=== PATIENT | male | born 1990 | race Caucasian/White ===

== ENCOUNTER 2019-12-04 19:38 | Inpatient (IN) | payer SELFPAY ==
--- NOTE | 2019-12-04 19:49 | ED_ITS ---
HPI - Psych General: Chief Complaint: Psychiatric Symptoms Stated Complaint: mhe Time Seen by Provider: 12/04/19 19:47 History of Present Illness: HPI Narrative: Pt states he has been using meth iv for a long time and he has a , he has had suicidal thoughts in the past and he is afraid to be around his while he is high, he states he needs help to get off meth and he is severely depressed. He has sores that are healing on his forearms. complaint: suicidal ideation (not at this moment but in recent past) Onset (ago): day(s) Duration: constant History of same: Yes Relieving factors: none Exacerbating factors: drug use (ivda- meth) Context: recent drug abuse and significant life stressor (has a ) Associated psychiatric symptoms: depression and suicidal ideation Associated symptoms: Reports depression, suicidal ideation and other (doesnt want to hurt ) Treatments prior to arrival: none If self harm: admits thoughts of self harm Review of Systems General: Reports: 10 or more systems reviewed and unremarkable except in HPI and below Const: Denies: fever, chills or fatigue ENMT: Denies: throat pain Card: Denies: chest pain or swelling of feet/ankles Resp: Denies: shortness of breath or productive cough GI: Denies: abdominal pain, nausea, vomiting, diarrhea, constipation or blood in stool Musc: Denies: back pain or extremity swelling Skin/Breast: Reports: new lesion (bilat forearms at sites of ivda, healing) Neuro: Denies: headache, numbness in extremities or weakness in extremities Psych: Reports: depression and suicidal ideation PFS ED PFSH: Social History Smoking and tobacco status: current every day smoker Physical Exam Const: COMMON NORMALS: no apparent distress and oriented x3 GENERAL APPEARANCE: cooperative; not in distress HENMT: COMMON NORMALS: normocephalic HEAD & SCALP: normal to inspection and normocephalic MOUTH: oral and palatal mucosa normal and lip normal THROAT: posterior oropharynx normal and tonsils normal Neck/C-Spine: COMMON NORMALS: full ROM, no lymphadenopathy, supple and no meningeal signs GENERAL: Yes normal visual inspection and Yes trachea midline Chest: COMMONS NORMALS: inspection of chest normal Resp: COMMON NORMALS: normal respiratory effort and clear to auscultation bilaterally EFFORT & INSPECTION: Yes able to speak in complete sentences and No respiratory distress AUSCULTATION: clear to auscultation bilaterally, no rales, no rhonchi and no wheezes Cardio: COMMON NORMALS: regular rate, regular rhythm, S1 normal heart sound, S2 normal heart sound and no murmurs RATE: regular rate RHYTHM: regular rhythm HEART SOUNDS: S1 normal and S2 normal PERIPHERAL PULSES: radial pulses present and dorsalis pedis pulses present GI: COMMON NORMALS: normal to inspection, nondistended, normoactive bowel sounds, soft to palpation and non-tender INSPECTION: Yes normal to inspection AUSCULTATION: Yes normoactive bowel sounds PALPATION: Yes soft, No tender, No guarding and No rigid RECTAL EXAM: Yes deferred : COMMON NORMALS: Yes no CVA tenderness BLADDER/KIDNEY EXAM: Yes no CVA tenderness Back/Pelvis: COMMON NORMALS: no CVA tenderness Extremity: RIGHT UPPER EXTREMITY: Yes lower arm (2 healing lesions at site of ivda) LEFT UPPER EXTREMITY: Yes lower arm (1 healing lesion at site of ivda) Neuro: COMMON NORMALS: oriented x3, CN's II-XII intact bilaterally, moves all extremities and no focal motor deficits MENINGEAL SIGNS: Yes no meningeal signs MDM - Psych MDM Narrative: Medical decision making narrative: Pt admits to ivda and states he has been very depressed and has had recent suicidal thoughts, he has a and doesnt want to harm her, he wants to stay in npu, Dr Sharma agrees, pt is positive formeth and marijuana. Has healing lesions on forearms, no cellulitis or abscess. . Lab Data: Labs: Lab Results 12/04/19 12/04/19 12/04/19 Range/Units 20:13 20:25 20:25 WBC 11.1 H (4.0-10.0) 10^3/ uL RBC 5.08 (4.1-5.3) 10^6/u L Hgb 14.3 (11.7-16.6) g/dL Hct 44.5 (42.0-52.0) % MCV 87.6 (80-94) fL MCH 28.1 (28.0-34.0) pg MCHC 32.1 (30.0-36.0) g/dL RDW 15.5 H (12.1-15.1) % Plt Count 381 (130-400) 10^3/c mm MPV 9.6 (7.4-10.4) fL Neut % (Auto) 59.5 % Lymph % (Auto) 28.0 % [place] % (Auto) 9.8 % Eos % (Auto) 1.6 % Baso % (Auto) 0.7 % Neut # (Auto) 6.6 (1.8-7.7) 10^3/u L Lymph # (Auto) 3.1 (0.8-4.8) 10^3/u L [place] # (Auto) 1.1 H (0.2-0.9) 10^3/u L Eos # (Auto) 0.2 (0.0-0.8) 10^3/u L Baso # (Auto) 0.1 (0.0-0.1) 10^3/u L Nucleated RBC % (a uto) 0 % Nucleated RBCs # 0.0 /100WBC Sodium 141 (136-145) mmol/L Potassium 4.6 (3.5-5.1) mmol/L Chloride 103 (98-107) mmol/L Carbon Dioxide 29 (22-29) mmol/L Anion Gap 13.6 (5-19) BUN 14 (6-20) mg/dL Creatinine 1.0 (0.7-1.2) mg/dL GFR Calculation 89.6 L (90-130) mL/min Glucose 98 (65-115) mg/dL Calculated Osmolal ity 288 (285-295) mOsm/k g Calcium 9.5 (8.5-10.5) mg/dL Total Bilirubin 0.3 (0.15-1.2) mg/dL AST 17 (0-40) U/L ALT 19 (0-41) U/L Alkaline Phosphata se 96 (40-130) IU/L Total Protein 6.8 (6.6-8.7) g/dL Albumin 4.0 (3.5-5.2) g/dL Globulin 2.8 (1.3-4.6) g/dL Salicylates < 0.3 L (3-10) mg/dL Urine Opiates Scre en Negative (Negative) ng/mL Acetaminophen < 5.0 L (10-30) ug/mL Ur Barbiturates Sc reen Negative (Negative) ng/mL Ur Phencyclidine S crn Negative (Negative) ng/mL Ur Amphetamines Sc reen Positive H (Negative) ng/mL U Benzodiazepines Scrn Negative (Negative) ng/mL Urine Cocaine Scre en Negative (Negative) ng/mL U Marijuana (THC) Screen Positive H (Negative) ng/mL Ethyl Alcohol < 10 (0-10) mg/dL Discharge Plan Discharge Prescriptions: No Action No Known Home Medications RF: 0 Coding Level of Care Code 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
[2019-12-04 19:58] VITALS: BP 134/86; PULSE 98; RESP 18; TEMP 37; O2SAT 96; BMI 24.4
[2019-12-04 20:32] LABS: Amphetamines Screen Urine Positive (Negative); Barbiturates Screen Urine Negative (Negative); Benzodiazepines Screen Urine Negative (Negative); Cocaine Screen Urine Negative (Negative); Opiate Screen Urine Negative (Negative); PCP Screen Urine Negative (Negative); THC Screen Urine Positive (Negative)
[2019-12-04 20:32] LABS: Basophils # 0.1 10^3/uL (0.0-0.1); Basophils % 0.7 %; Eosinophils # 0.2 10^3/uL (0.0-0.8); Eosinophils % 1.6 %; Hematocrit 44.5 % (42.0-52.0); Hemoglobin 14.3 g/dL (11.7-16.6); Lymphocytes # 3.1 10^3/uL (0.8-4.8); Mean Corpuscular HGB Conc 32.1 g/dL (30.0-36.0); Mean Corpuscular Hemoglobin 28.1 pg (28.0-34.0); Mean Corpuscular Volume 87.6 fL (80-94); Mean Platelet Volume 9.6 fL (7.4-10.4); Monocytes # 1.1 10^3/uL (0.2-0.9); Monocytes % 9.8 %; Neutrophils # 6.6 10^3/uL (1.8-7.7); Neutrophils % 59.5 %; Nucleated Red Blood Cells % 0 %; Platelet Count 381 10^3/cmm (130-400); Red Blood Count 5.08 10^6/uL (4.1-5.3); Red Cell Distribution Width 15.5 % (12.1-15.1); White Blood Count 11.1 10^3/uL (4.0-10.0)
[2019-12-04 20:50] LABS: Acetaminophen < 5.0 ug/mL (10-30); Alanine Aminotransferase 19 U/L (0-41); Alcohol Level < 10 mg/dL (0-10); Alkaline Phosphatase 96 IU/L (40-130); Anion Gap 13.6 (5-19); Aspartate Amino Transferase 17 U/L (0-40); Blood Urea Nitrogen 14 mg/dL (6-20); Calcium 9.5 mg/dL (8.5-10.5); Carbon Dioxide 29 mmol/L (22-29); Chloride 103 mmol/L (98-107); Globulin 2.8 g/dL (1.3-4.6); Glomerular Filtration Rate 89.6 mL/min (90-130); Glucose 98 mg/dL (65-115); Osmolality Calculated 288 mOsm/kg (285-295); Potassium 4.6 mmol/L (3.5-5.1); Salicylate < 0.3 mg/dL (3-10); Sodium 141 mmol/L (136-145); Total Bilirubin 0.3 mg/dL (0.15-1.2); Total Protein 6.8 g/dL (6.6-8.7)
[2019-12-04 21:35] VITALS: BP 148/98; PULSE 96; RESP 16; O2SAT 100
[2019-12-04 22:15] VITALS: BP 131/80; PULSE 87; RESP 21; TEMP 36.6; O2SAT 100
[2019-12-04 22:36] VITALS: BP 131/80; PULSE 87; RESP 21; TEMP 36.6; O2SAT 100
[2019-12-05 06:00] VITALS: BP 121/71; PULSE 87; RESP 18; TEMP 36.8; O2SAT 99
--- NOTE | 2019-12-05 09:45 | PM.NHP ---
Providers/Chief Complaint Admitting Physician: Barrett Sharma MD Chief Complaint: mhe HPI NPU History of Present Illness Maco Crenshaw is a 29 year old male who presents today reporting that he came to the emergency room secondary to having thoughts to kill himself. He reports that he has a that is a few months old and that for some reason he cannot stop using methamphetamines, and he is fearful that he is going to hurt himself or do something harmful to the baby why he is in some altered state. He denies the desire to do anything to the baby and really does not want to harm himself, but he reports that he feels horrible and distraught about his behavior, he feels guilty, his mood is low and he has lost interest in other things. He reports that it is not that he gets high and then feels horrible, it is that when he is thinking clearly and has withdrawn from the drugs that he is feeling significant depression and anxiety, and not knowing what to do and not feeling like he has any chance of maintaining his sobriety which makes him feel even more depressed. He reports he has never been in psychiatric care, that he has never had any psychiatric medications, he has never been hospitalized, this is all new to him. PSYCHIATRIC HISTORY: As above with no previous history. SUBSTANCE ABUSE HISTORY: He endorsed smoking cigarettes. He reports he does not drink alcohol often. He has marijuana frequently but not daily. He denies cocaine use but does endorse methamphetamine use daily at times. He denies opiate use or benzodiazepine use. He has never been to rehab, never had a DUI. FAMILY HISTORY: He endorses a family history of mental health and especially addiction issues. Unclear about any suicide attempts or completions in the family. DEVELOPMENTAL HISTORY: He denies any problems with his or delivery. He reports that he learned to walk and talk and met his developmental milestones on time. He denies any issues of speech therapy, but then said that his siblings had speech therapy and they realized that he just had a lisp or something they identified, but it made it so that they really did not do the speech therapy with him. He denies having learning support, emotional support or special education classes. He reports that his parents were together when he was born, but later . He does have a sibling through his parents. He reports that his childhood was fairly normal. He endorses graduating from high school. He reports that he is heterosexual, his longest relationship has been about six years. He has never officially been . He has one child, he thought he had two, but he just recently found out that the one that had been identified as his, was actually not his. He has never been in the . He endorses being Nondenominational. He reports that he has always worked for the most part and been a ?functional addict? but reports that he has really struggled recently with maintaining that. He endorses that he currently has been living with his ex and her man which has been really difficult. PSYCHOSOCIAL HISTORY: LEGAL HISTORY: He has been in senior living a few times, but never more than like 72-hour holds. MEDICAL HISTORY: He denies any significant issues. Meds NPU Home Medications Medication Instructions Recorded Confirmed Last Taken Type No Known Home Medications 12/04/19 12/04/19 Unknown History Allergies Allergy/AdvReac Type Severity Reaction Status Date / Time No Known Allergies Allergy Verified 12/04/19 20:05 PFS NPU PFSH: Social History Smoking and tobacco status: current every day smoker Mental Status Exam MSE Comments: This is a well-nourished, well-developed, white male, with adequate dress, grooming, and eye contact. He has significant sores that are healing on his arms and forearms. No abnormal movements except for psychomotor retardation. Cooperative with exam in mild distress. Speech was decreased rate and volume. Mood described as depressed; affect congruent, tearful or near tearful for most of the interview. Thought process, organized. Thought content: patient having some suicidal ideation but no homicidal ideation. There were no delusions reported or noted, patient denied any auditory or visual hallucinations. Attention and concentration were intact, and memory appeared reliable, but none were formally tested. He is alert and oriented times three. Insight and judgment are fair. Vitals/I&O/Wt Last Vital Signs Temp 97.9 F 12/05/19 12:49 Pulse 84 12/05/19 12:49 Resp 18 12/05/19 12:49 BP 151/84 12/05/19 12:49 Pulse Ox 100 12/05/19 12:49 Weight last 48 hrs Weight 76.294 kg Weight 79.379 kg Data NPU : 12/04/19 20:12/04/19 20:25 A&P Assessment and plan (1) Suicidal ideation: This is a 29 year old, white male, with depressive disorder, unspecified, and methamphetamine use disorder, severe, who presents with suicidal thoughts and desiring treatment for his depression and hopefully being pointed in the direction of inpatient addiction treatment. Continue current medications, except: Start Prozac 20 mg po qam. Can give 10 mg today now, and then will start 20 mg every morning. Continue individual and milieu therapy. Continue q 15-minute checks for safety. Tomorrow will work with social work team to see what sober living options are available given the COVID crisis. Status: Acute (2) Depression: Status: Acute Qualifiers: Active/Remission status: currently active Depression Type: major depressive disorder Major depression episode severity: severe Major depression recurrence: recurrent Psychotic features: without psychotic features Qualified Code(s): F33.2 - Major depressive disorder, recurrent severe without psychotic features (3) Drug abuse, IV: Status: Acute Involuntary Hold Information 96 Hour Hold: 96 Hour Involuntary Admission: No Attestations NPU Medical Necessity Statement*: Inpatient hospitalization is medically necessary and the clinically appropriate intervention at this time. He will be in the hospital for over two midnights. We will monitor medications and adjust as indicated. Likely length of stay three to five days. 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
[2019-12-05 12:49] VITALS: BP 151/84; PULSE 84; RESP 18; TEMP 36.6; O2SAT 100
[2019-12-05] MEDS: trazodone 50 mg Tablet PO (21:06)
[2019-12-05] MEDS: fluoxetine 10 mg Capsule PO (21:24)
[2019-12-05 21:27] VITALS: BP 132/74; PULSE 85; RESP 18; TEMP 36.7; O2SAT 98
--- NOTE | 2019-12-05 23:08 | PC.NURSE ---
Pt given scheduled prozac and PRN trazodone at 2123.
[2019-12-06 06:00] VITALS: BP 142/90; PULSE 67; RESP 17; TEMP 36.5; O2SAT 96
[2019-12-06] MEDS: fluoxetine 20 mg Capsule PO (08:53)
--- NOTE | 2019-12-06 13:56 | P.PN_ITS ---
Subjective NPU Subjective: Interval history: Maco presents today reporting that he is doing okay. He was fairly lethargic and hard to arouse and clearly going through the natural crash after a significant methamphetamine binge. He continues to endorse that the medication is helping, and we began to discuss other options. We are supposed to be meeting with social workers and therapists sometime later today about definitive addiction treatment as we focus on his depression. We discussed the possibility of introducing some Naltrexone, which has had some anecdotal evidence in helping people with cravings against methamphetamine, and he understood and agreed to consider making that change. Mental Status Exam MSE Comments: This is a well-nourished, well-developed, white male, with adequate dress, and limited grooming and eye contact, with some sores of differing ages, healing on his body. No abnormal movements. Cooperative with exam in no acute distress. Speech was decreased rate and volume. Mood described as depressed; affect congruent. Thought process, organized. Thought content: michelle redman denied any suicidal or homicidal ideation, there were no delusions reported or noted, he denied any auditory or visual hallucinations. Attention, concentration, and memory appeared intact but were not formally tested. He is alert and oriented times three. Insight and judgment are fair. Vitals/I&O/Wt Last Vital Signs Temp 97.7 F 12/06/19 06:00 Pulse 67 12/06/19 06:00 Resp 17 12/06/19 06:00 BP 142/90 12/06/19 06:00 Pulse Ox 96 12/06/19 06:00 Data NPU : 12/04/19 20:25 12/04/19 20:25 A&P Additional A&P Information (1) Suicidal ideation: This is a 29 year old, white male, with depressive disorder, unspecified, and methamphetamine use disorder, severe, who presents with suicidal thoughts and desiring treatment for his depression and hopefully being pointed in the direction of inpatient addiction treatment. Continue current medications, except: Consider Naltrexone 50 mg po qam Continue individual and milieu therapy. Continue q 15-minute checks for safety. Tomorrow will work with social work team to see what sober living options are available given the COVID crisis. (2) Depression: (3) Drug abuse, IV: Involuntary Hold Information 96 Hour Hold: 96 Hour Involuntary Admission: No Attestations NPU Medical Necessity Statement*: Inpatient hospitalization is medically necessary and the clinically appropriate intervention at this time. We will monitor medications and adjust as indicated. Likely length of stay 2-4 days. Coding Level of Care Code Acute [employer] for Estela [employer]
[2019-12-06 14:00] VITALS: BP 128/75; PULSE 71; RESP 18; TEMP 36.7; O2SAT 96
[2019-12-06] MEDS: trazodone 50 mg Tablet PO (20:45)
--- NOTE | 2019-12-06 21:25 | PC.NURSE ---
Pt given PRN Trazodone per request for sleep.
[2019-12-06 21:38] VITALS: BP 122/86; PULSE 112; RESP 20; TEMP 36.9; O2SAT 96
[2019-12-07 06:00] VITALS: BP 122/72; PULSE 71; RESP 20; TEMP 36.7; O2SAT 96
[2019-12-07] MEDS: fluoxetine 20 mg Capsule PO (09:31)
[2019-12-07 13:28] VITALS: BP 124/77; PULSE 84; RESP 18; TEMP 36.6; O2SAT 98
--- NOTE | 2019-12-07 15:52 | PM.NPN ---
Subjective NPU Subjective: Interval history: Maco presents today reporting that he is feeling okay. We discussed the fact that with the COVID there are not a lot of options for inpatient services immediately, but he filled out paperwork and we made recommendations so that he can do outpatient services and possibly move in to inpatient services as they become available as things reopen. We are working towards him having a place to stay while this occurs. He endorses the medications have been fine and effective, and we discussed the possibility of discharge within the next 48 hours. Mental Status Exam MSE Comments: This is a well-nourished, well-developed, white male, with adequate dress, grooming, and eye contact with sores of different ages healing on his body. No abnormal movements except for psychomotor retardation. Cooperative with exam in no acute distress. Speech was decreased rate and volume. Mood described as a little better; affect congruent. Thought process, organized. Thought content: patient denied any suicidal or homicidal ideation, there were no delusions reported or noted, patient denied any auditory or visual hallucinations. Attention, concentration, and memory appeared intact but were not formally tested. Alert and oriented times three. Insight and judgment are limited but improving. Vitals/I&O/Wt Last Vital Signs Temp 98.0 F 12/07/19 21:29 Pulse 112 H 12/07/19 21:29 Resp 20 H 12/07/19 21:29 BP 109/70 12/07/19 21:29 Pulse Ox 97 12/07/19 21:29 Data NPU : 12/04/19 20:25 12/04/19 20:25 A&P Additional A&P Information (1) Suicidal ideation: This is a 29 year old, white male, with depressive disorder, unspecified, and methamphetamine use disorder, severe, who presents with suicidal thoughts and desiring treatment for his depression and hopefully being pointed in the direction of inpatient addiction treatment. Continue current medications, except: Consider Naltrexone 50 mg po qam Continue individual and milieu therapy. Continue q 15-minute checks for safety. Tomorrow will work with social work team to see what sober living options are available given the COVID crisis. (2) Depression: (3) Drug abuse, IV: Involuntary Hold Information 96 Hour Hold: 96 Hour Involuntary Admission: No Attestations NPU Medical Necessity Statement*: Inpatient hospitalization is medically necessary and the clinically appropriate intervention at this time. We will monitor medications and adjust as indicated. Likely length of stay 1-3 days. 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
[2019-12-07] MEDS: hyDROXYzine 25 mg Capsule 50 MG PO (20:34)
[2019-12-07] MEDS: OLANZapine ODT 5 MG TABLET PO (20:34)
[2019-12-07 21:29] VITALS: BP 109/70; PULSE 112; RESP 20; TEMP 36.7; O2SAT 97
--- NOTE | 2019-12-07 21:40 | PC.NURSE ---
Pt given Prn visteril per pt request.
[2019-12-08 05:54] VITALS: BP 124/78; PULSE 79; RESP 17; TEMP 36.7; O2SAT 98
[2019-12-08] MEDS: fluoxetine 20 mg Capsule PO (09:03)
--- NOTE | 2019-12-08 11:42 | P.PN_ITS ---
Subjective NPU Subjective: Interval history: Maco presents today reporting that as much as there are challenges out there, he is feeling optimistic that he is going to be able to manage this situation. He filled out the papers for outpatient rehabilitation with the hopes of getting an inpatient rehabilitation, but he is prepared to do whatever is available, for now, to try to maintain his sobriety and to avoid getting himself in the hole that he found himself in. The social work team is working with him to identify where he is going to stay; it is a toss-up between the old place that he was staying, which he would not prefer, and seeing if his sister would give him a chance to demonstrate that he is really ready to change; he would prefer to stay with her while he is doing this and making improvements. Otherwise, he reports that he is not having any problems with the medication and that he is eating and sleeping well. Mental Status Exam MSE Comments: This is an overweight, well-developed, white male, with adequate dress, grooming, and eye contact, with still notable healing sores of differing ages. No abnormal movements, except for improving psychomotor retardation. Cooperative with exam in no acute distress. Speech was decreased rate and volume, but improving. Mood described as a little better; affect still subdued. Thought process, organized. Thought content: patient denied any suicidal or homicidal ideation, there were no delusions reported or noted, patient denied an y auditory or visual hallucinations. Attention, concentration, and memory appeared intact but none were formally tested. Alert and oriented times three. Insight and judgment are limited but improving. Vitals/I&O/Wt Last Vital Signs Temp 97.8 F 12/08/19 21:44 Pulse 94 12/08/19 21:44 Resp 17 12/08/19 21:44 BP 121/74 12/08/19 21:44 Pulse Ox 97 12/08/19 21:44 Data NPU : 12/04/19 20:25 12/04/19 20:25 A&P Additional A&P Information (1) Suicidal ideation: This is a 29 year old, white male, with depressive disorder, unspecified, and methamphetamine use disorder, severe, who presents with suicidal thoughts and desiring treatment for his depression and hopefully being pointed in the direction of inpatient addiction treatment. Continue current medications, except:He will get a script of Revia for when his insurance kicks in Continue individual and milieu therapy. Continue q 15-minute checks for safety. Tomorrow will work with social work team to see what sober living options are available given the COVID crisis. (2) Depression: (3) Drug abuse, IV: Involuntary Hold Information 96 Hour Hold: 96 Hour Involuntary Admission: No Attestations NPU Medical Necessity Statement*: Inpatient hospitalization is medically necessary and the clinically appropriate intervention at this time. We will monitor medications and adjust as indicated. Likely length of stay 1-2 days. 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
[2019-12-08 14:00] VITALS: BP 123/72; PULSE 85; RESP 20; TEMP 36.9; O2SAT 97
[2019-12-08 21:44] VITALS: BP 121/74; PULSE 94; RESP 17; TEMP 36.6; O2SAT 97
[2019-12-09 06:00] VITALS: BP 120/70; PULSE 89; RESP 17; TEMP 36.7; O2SAT 95
[2019-12-09] MEDS: fluoxetine 20 mg Capsule PO (08:38)
--- NOTE | 2019-12-09 13:01 | PM.NDC ---
Diagnoses at Discharge Discharge Diagnosis (1) Suicidal ideation: Status: Acute (2) Depression: Status: Acute Qualifiers: Active/Remission status: currently active Depression Type: major depressive disorder Major depression episode severity: severe Major depression recurrence: recurrent Psychotic features: without psychotic features Qualified Code(s): F33.2 - Major depressive disorder, recurrent severe without psychotic features (3) Drug abuse, IV: Status: Acute Reason for Visit Reason for Visit: Reason For Visit: mhe Brief History: History of Present Illness Mcao Crenshaw is a 29 year old male who presents today reporting that he came to the emergency room secondary to having thoughts to kill himself. He reports that he has a that is a few months old and that for some reason he cannot stop using methamphetamines, and he is fearful that he is going to hurt himself or do something harmful to the baby why he is in some altered state. He denies the desire to do anything to the baby and really does not want to harm himself, but he reports that he feels horrible and distraught about his behavior, he feels guilty, his mood is low and he has lost interest in other things. He reports that it is not that he gets high and then feels horrible, it is that when he is thinking clearly and has withdrawn from the drugs that he is feeling significant depression and anxiety, and not knowing what to do and not feeling like he has any chance of maintaining his sobriety which makes him feel even more depressed. He reports he has never been in psychiatric care, that he has never had any psychiatric medications, he has never been hospitalized, this is all new to him. PSYCHIATRIC HISTORY: As above with no previous history. SUBSTANCE ABUSE HISTORY: He endorsed smoking cigarettes. He reports he does not drink alcohol often. He has marijuana frequently but not daily. He denies cocaine use but does endorse methamphetamine use daily at times. He denies opiate use or benzodiazepine use. He has never been to rehab, never had a DUI. FAMILY HISTORY: He endorses a family history of mental health and especially addiction issues. Unclear about any suicide attempts or completions in the family. DEVELOPMENTAL HISTORY: He denies any problems with his or delivery. He reports that he learned to walk and talk and met his developmental milestones on time. He denies any issues of speech therapy, but then said that his siblings had speech therapy and they realized that he just had a lisp or something they identified, but it made it so that they really did not do the speech therapy with him. He denies having learning support, emotional support or special education classes. He reports that his parents were together when he was born, but later . He does have a sibling through his parents. He reports that his childhood was fairly normal. He endorses graduating from high school. He reports that he is heterosexual, his longest relationship has been about six years. He has never officially been . He has one child, he thought he had two, but he just recently found out that the one that had been identified as his, was actually not his. He has never been in the . He endorses being Shinto. He reports that he has always worked for the most part and been a ?functional addict? but reports that he has really struggled recently with maintaining that. He endorses that he currently has been living with his ex and her man which has been really difficult. PSYCHOSOCIAL HISTORY: LEGAL HISTORY: He has been in intermediate a few times, but never more than like 72-hour holds. MEDICAL HISTORY: He denies any significant issues. Hospital Course Hospital Course Maco presented to the emergency room reporting that he was having suicidal thoughts and had been out of control with his methamphetamine addiction, so he was admitted to the neuropsychiatric unit for definitive care. He slowly acclimated to the resources provided. He was started on Prozac and tolerated that medication fine. He also went through the withdrawal from the methamphetamine slowly but effectively. He was connected with services and showed marked improvement. During the hospitalization, he had routine laboratory studies which were within normal limits, except for a few outliers. Additionally, he had a general medical evaluation which was within normal limits, in general, and had no new acute processes except for notable healing sores from his injection sites. Discharge Summary At the time of discharge he denied all lethality, he was absent psychosis, his mood and anxiety were well managed, and he endorsed a plan to follow-up with the treatment recommendations that were provided, which included access to both outpatient and inpatient sober living services. He was evaluated and deemed to be absent credible lethality, and had reached the maximum benefit from inpatient hospitalization, and so he was discharged. Involuntary Hold Information 96 Hour Hold: 96 Hour Involuntary Admission: No Mental Status Exam MSE Comments: This is a well-nourished, well-developed, white male, with adequate dress, grooming, and eye contact. With notable healing sores and scars of differing ages. No abnormal movements, except for resolving psychomotor retardation. Cooperative with exam in no acute distress. Speech was slightly decreased rate and volume but improving. Mood described as much better; affect congruent. Thought process, organized. Thought content: patient denied any suicidal or homicidal ideation, there were no delusions reported or noted, he denied any auditory or visual hallucinations. Attention, concentration, and memory appeared intact but none were formally tested. He is alert and oriented times three. Insight and judgment are improving. Discharge Data Vitals: Last Vital Signs Temp 98.1 F 12/09/19 06:00 Pulse 89 12/09/19 06:00 Resp 17 12/09/19 06:00 BP 120/70 12/09/19 06:00 Pulse Ox 95 12/09/19 06:00 Discharge Plan Discharge Patient Disposition: Home, Self-Care Condition: Stable Prescriptions: New fluoxetine 20 mg Capsule 20 mg PO DAILY 30 Days Qty: 30 RF: 1 naltrexone 50 mg tablet 50 mg PO DAILY Qty: 30 RF: 1 Discharge Orders: Discharge Order (Routine); Ordered 12/09/19 Ordered By: Barrett Sharma Referrals: [facility] [place] [facility] [Outside] (most likely [facility] is opening up next week of December 12 for face to face interviews. do call and confirm before going to [facility]. Typically, when you start outpatient mental health services at [facility] you go during the walk-in hours of 7:30a.m. -2:30 on any day Friday through Friday. You need to get initial intake done and then from there you will be able to get an appointment. ) [facility] [Outside] (you will need to call daily about updates on starting your treatment at [facility] for substance abuse treatment. Right now COVID 19 is affecting them from meeting. ) Discharge Diet: Regular Discharge Activity: Resume usual activity Patient Instructions: Fluoxetine (By mouth), Depression (DC), Methamphetamine Abuse (DC) Discharge Date/Time: 12/09/19 13:32 Discharge Attestations NPU Time Spent in Discharge Care*: less than 30 min Specific Discharge Activities: Specific discharge activities: educating patient, discussing with welfare case worker/social workers/dc planners, documenting/other paperwork and evaluating patient/reviewing data Coding Level of Care Code Acute Surgical Attendant for g Fwd Diagnoses Suicidal ideation R45.851 Depression F33.2 Active/Remission status: currently active Depression Type: major depressive disorder Major depression episode severity: severe Major depression recurrence: recurrent Psychotic features: without psychotic features Drug abuse, IV F19.10
[2019-12-09 13:02] VITALS: BP 120/70; PULSE 89; RESP 17; TEMP 36.7; O2SAT 95
== END 2019-12-09 13:32 | disposition home or self-care (01) | DRG 885 ==
LOC: ER 21:03 → NP 21:22
PROVIDERS: Admitting Provider Psychiatry & Neurology Psychiatry; Emergency Provider Emergency Medicine; Visit Provider Psychiatry & Neurology Psychiatry
DX: F33.2 Major depressive disorder, recurrent severe without psychotic features (principal); R45.851 Suicidal ideations; F15.20 Other stimulant dependence, uncomplicated
CPT/HCPCS: 12345; 80053; 80306; 80307; 85025; 99284

== ENCOUNTER → 2019-12-28 08:01 | Outpatient (BNVA) | payer SELFPAY | PROVIDERS: Visit Provider Counselor Mental Health | DX: F33.2 Major depressive disorder, recurrent severe without psychotic features (principal); F15.10 Other stimulant abuse, uncomplicated | CPT/HCPCS: 90834; 90839 ==

== ENCOUNTER 2020-04-12 09:53 | Emergency (ER) | payer SELFPAY ==
[2020-04-12 10:19] VITALS: BP 130/86; PULSE 84; RESP 16; TEMP 36.4; O2SAT 65; BMI 25.7
--- NOTE | 2020-04-12 10:37 | W.ED.DENTAL ---
HPI - Dental/Oral General: Chief complaint: Dental/Oral Stated complaint: SWOLLEN FACE Time Seen by Provider: 04/12/20 10:33 History of Present Illness: HPI Narrative: Patient woke up with swelling left side of jaw. Does have history of dental caries. Onset (ago): hour(s) Severity: mild Associated symptoms: Denies fever(s) Review of Systems Const: Denies: fever(s), chills or body aches Eyes: Denies: change in vision or blurry vision ENMT: Reports: other (Swelling left side of jaw has a history of dental caries); Denies: throat pain or nasal congestion Card: Denies: chest pain or dyspnea on exertion Resp: Denies: dyspnea, productive cough or non-productive cough GI: Denies: abdominal pain, nausea or vomiting : Denies: difficulty urinating Musc: Denies: extremity pain Skin/Breast: Denies: rash Neuro: Denies: headache(s) Psych: Denies: anxiety or depression Saul/Lymph: Denies: easy bruising PFSH ED PFSH: Social History Smoking and tobacco status: current every day smoker Current gender identity: Male Physical Exam Const: COMMON NORMALS: no acute distress, average body habitus and patient oriented x3 HENMT: COMMON NORMALS: normocephalic HEAD & SCALP: normal to inspection and normocephalic FACE & SINUS: normal facial exam TEETH & GINGIVA IMAGES: 1. Teeth are down to the gumline they are black and he has swelling on this side no abscess formation felt Eye: COMMON NORMALS: conjunctivae normal GENERAL EYE: appearance normal, both eyes and all related structures CONJUNCTIVA: Yes conjunctivae normal Neck/C-Spine: COMMON NORMALS: no JVD Chest: COMMONS NORMALS: normal inspection of the chest Resp: COMMON NORMALS: normal respiratory effort Cardio: COMMON NORMALS: no JVD Extremity: COMMON NORMALS: normal to inspection and full ROM Neuro: COMMON NORMALS: patient oriented x3 Course Vital Signs: Vital signs: Vital Signs Temperature 97.5 F L 04/12/20 10:19 Pulse Rate 84 04/12/20 10:19 Respiratory Rate 16 04/12/20 10:19 Blood Pressure 130/86 04/12/20 10:19 Pulse Oximetry 65 L 04/12/20 10:19 Discharge Plan Discharge Patient Disposition: Home Clinical Impression: Abscess, dental Condition: Stable Prescriptions: New clindamycin HCl 300 mg capsule 300 mg PO TID 7 Days Qty: 21 RF: 0 No Action fluoxetine 20 mg Capsule 20 mg PO DAILY 30 Days Qty: 30 RF: 1 naltrexone 50 mg tablet 50 mg PO DAILY Qty: 30 RF: 1 Discharge Orders: Discharge Order (Routine); Ordered 04/12/20 Ordered By: Isaac Wesley Discharge Diet: Usual diet Discharge Activity: Increase activity as tolerated Patient Instructions: Dental Abscess (ED) Activity Restrictions/Additional Instructions: Follow-up with medical provider as directed. Take medications as prescribed. Return to the ER or your medical provider if condition worsens. Please read and understand discharge instructions. If any questions ask please. Follow-up dentist soon as possible Coding Level of Care Code ED Mold Design Engineer for Estela Blood
[2020-04-12 10:41] VITALS: BP 125/88; PULSE 87; RESP 16; O2SAT 98
== END 2020-04-12 10:44 | disposition home or self-care (01) ==
PROVIDERS: Emergency Provider Nurse Practitioner Family
DX: K04.7 Periapical abscess without sinus (principal); F17.210 Nicotine dependence, cigarettes, uncomplicated
CPT/HCPCS: 12345; 99281

== ENCOUNTER 2020-06-26 08:07 | Emergency (ER) | payer OTHER, SELFPAY ==
[2020-06-26 08:19] VITALS: BP 122/79; PULSE 109; RESP 16; TEMP 37.1; O2SAT 95; BMI 23.7
--- NOTE | 2020-06-26 09:00 | XR_ITS ---
WS: [id number] Exam: XR chest 1V portable [id number] Date/Time of Exam: 06/26/2020 9:00 AM Reason For Exam: dyspnea/cough Findings: The lungs are clear and fully expanded. Costophrenic angles are sharp. No infiltrates. Bronchovascula r relief appears normal. Cardiac silhouette is unremarkable. Bony elements are intact. XR/XR chest 1V portable [id number] IMPRESSION: Unremarkable chest radiograph.
--- NOTE | 2020-06-26 09:02 | ED_ITS ---
HPI - Fever General: Chief Complaint: Fever Stated Complaint: Fever/Coughing/Weakness Time Seen by Provider: 06/26/20 08:09 History of Present Illness: HPI Narrative: 29-year-old male comes in complaining of cough fever weakness myalgias he has had a cough for the last couple weeks but the myalgias no other symptoms as well as a cough of all accelerated significantly over the last approximately week. He is a smoker he states he has had moderate production of sputum he is not been particularly short of breath he is not had any diarrhea. MD elicited complaint: fever Onset (ago): day(s) Exacerbating factors: exertion Relieving factors: rest Associated symptoms: Reports chills, cough, myalgias, nasal congestion, nausea and rhinorrhea; Deny abdominal pain, flank pain, chest pain, confusion, diarrhea, dysuria, extremity pain, headache(s), night sweats, rash, short of breath, sinus pain, stiffness, sore throat, vomiting or weight loss Treatments prior to arrival fever: none Review of Systems Const: Reports: chills; Denies: night sweats Eyes: Denies: change in vision or blurry vision ENMT: Reports: nasal congestion; Denies: sinus pain Card: Denies: chest pain Resp: Reports: productive cough; Denies: dyspnea, non-productive cough or wheezing GI: Reports: nausea; Denies: abdominal pain, vomiting or diarrhea : Denies: flank pain or dysuria Musc: Denies: extremity pain Skin/Breast: Denies: rash, pruritus or erythema Neuro: Denies: headache(s) or confusion Psych: Denies: anxiety, depression, loss of interest, visual hallucinations, auditory hallucinations, suicidal ideation or homicidal ideation Endo: Denies: polyuria, polydipsia, tired all the time or cold intolerance Saul/Lymph: Denies: easy bruising, easy bleeding, petechiae, enlarged lymph nodes or tender lymph nodes PFS ED PFSH: Social History Smoking and tobacco status: current every day smoker Current gender identity: Male Physical Exam Const: COMMON NORMALS: no acute distress GENERAL APPEARANCE: cooperative and comfortable ORIENTATION/CONSCIOUSNESS: Yes awake, Yes oriented to person, Yes oriented to place and Yes oriented to time HENMT: COMMON NORMALS: normocephalic, atraumatic and hearing grossly normal bilaterally HEAD & SCALP: normocephalic and atraumatic Neck/C-Spine: COMMON NORMALS: no JVD Resp: COMMON NORMALS: normal respiratory effort, No retractions, No use of accessory muscles and clear to auscultation bilaterally AUSCULTATION: clear to auscultation bilaterally Cardio: COMMON NORMALS: no JVD, regular rate, regular rhythm and No murmurs present (Cardio) RATE: regular rate RHYTHM: regular rhythm GI: COMMON NORMALS: Soft to palpation and No hepatosplenomegaly present AUSCULTATION: Yes normoactive bowel sounds PALPATION: Yes Soft to palpation, No Tenderness to palpation present (GI), No Guarding due to palpation present (GI) and Yes No hepatosplenomegaly present Extremity: COMMON NORMALS: normal to inspection, capillary refill normal, no clubbing, cyanosis or edema, no calf tenderness and no pedal edema Neuro: SENSORIUM/ORIENTATION: Yes oriented to person, Yes oriented to place and Yes oriented to time Skin: COMMON NORMALS: no rashes or lesions noted GENERAL SKIN EXAM: no rashes or lesions noted Course Vital Signs: Vital signs: Vital Signs Temperature 98.7 F 06/26/20 08:19 Pulse Rate 93 06/26/20 09:45 Respiratory Rate 18 06/26/20 09:45 Blood Pressure 118/74 06/26/20 09:45 Pulse Oximetry 98 06/26/20 09:45 MDM - Fever MDM Narrative: Medical decision making narrative: Reviewed findings with the patient. Suspect he may have COVID-19 however he is very stable his chest x-ray is normal will discharge home with albuterol to use as needed return if has further problems recommend self quarantine until test results are available. Discharge Plan Discharge Patient Disposition: Home Clinical Impression: Viral URI with cough, Suspected 2019-nCoV infection Condition: Stable Prescriptions: New albuterol sulfate 90 mcg/actuation HFA aerosol inhaler 2 inh INHALATION Q4H PRN (Reason: shortness of breath or wheezing) Qty: 18 RF: 0 No Action fluoxetine 20 mg Capsule 20 mg PO DAILY 30 Days Qty: 30 RF: 1 naltrexone 50 mg tablet 50 mg PO DAILY Qty: 30 RF: 1 Discharge Orders: Discharge Order (Routine); Ordered 06/26/20 Ordered By: Sarkis Oden Activity Restrictions/Additional Instructions: You were tested for COVID-19 today. Recommend that you remain self quarantined until the results are back if you have worsening problems with breathing return. Coding Level of Care Code ED Commutator Assembler for Estela Fwd Exam Comprehensive
[2020-06-26 09:45] VITALS: BP 118/74; PULSE 93; RESP 18; O2SAT 98
[2020-06-27 17:18] LABS: Coronavirus Lab Test PTC Negative
--- NOTE | 2020-06-28 08:37 | PC.NURSE ---
notified pt of COVID results
== END 2020-06-26 09:47 | disposition home or self-care (01) ==
PROVIDERS: Emergency Provider Family Medicine
DX: J06.9 Acute upper respiratory infection, unspecified (principal); Z20.828 Contact with and (suspected) exposure to other viral communicable diseases; F17.210 Nicotine dependence, cigarettes, uncomplicated
CPT/HCPCS: 12345; 71045; 87635; 99281; 99283

== ENCOUNTER 2021-09-17 16:39 | Emergency (ER) | payer SELFPAY ==
[2021-09-17 17:00] VITALS: BP 128/78; PULSE 95; RESP 18; TEMP 36.8; O2SAT 99; BMI 23.4
--- NOTE | 2021-09-17 18:30 | ED_ITS ---
HPI - Male Genitourinary General: Chief complaint: Urogenital-Male Stated complaint: penile discharge Time Seen by Provider: 09/17/21 17:34 Source: patient Mode of arrival: ambulatory Limitations: no limitations History of Present Illness: Patient is a 30-year-old male who presents to ED today with a complaint of penile discharge over the past few days. He is also having some burning with urination. He has not noticed any rashes or lesions to his genitalia. Patient states he arrived to the ED with a female individual who is also being seen with complaints of vaginal discharge but states she LWBS. Patient is concerned for STDs and wants treatment. MD Complaint: penile discharge Onset (ago): day(s) Duration: constant Location: penis Severity: moderate Exacerbating factors: urination Associated symptoms: Reports discharge and dysuria; Deny nausea or vomiting Related Data: Sexually active: Yes Review of Systems Const: Denies: fever(s), chills, body aches, fatigue or malaise GI: Denies: abdominal pain, nausea, vomiting or diarrhea : Reports: dysuria and penile discharge; Denies: flank pain, difficulty urinating, genital pain, genital lesions, testicular pain, testicular mass or scrotal swelling Musc: Denies: back pain Skin/Breast: Denies: rash PFSH ED PFSH: Social History Smoking and tobacco status: current every day smoker Current gender identity: Male Physical Exam Const: COMMON NORMALS: no acute distress, patient oriented x3, no limitations and alert GENERAL APPEARANCE: cooperative Resp: COMMON NORMALS: normal respiratory effort Cardio: COMMON NORMALS: regular rate and regular rhythm RATE: regular rate RHYTHM: regular rhythm GI: COMMON NORMALS: Normal to inspection, nondistended, normoactive bowel sounds present, Soft to palpation, non-tender, No hepatosplenomegaly present and no masses PALPATION: Yes Soft to palpation and Yes No hepatosplenomegaly present : COMMON NORMALS: Yes no CVA tenderness, Yes scrotum normal and Yes no scrotal swelling BLADDER/KIDNEY EXAM: Yes no CVA tenderness PENIS: normal penis and circumcised MEATUS: meatal discharge (diffuse white/yellow discharge present) SCROTUM: Yes testes descended bilaterally TESTES: Yes testicular lie normal Back/Pelvis: COMMON NORMALS: no CVA tenderness Neuro: COMMON NORMALS: patient oriented x3 SENSORIUM/ORIENTATION: Yes alert Skin: COMMON NORMALS: no rashes or lesions noted GENERAL SKIN EXAM: no rashes or lesions noted Course Vital Signs: Vital signs: Vital Signs Temperature 98.2 F 09/17/21 17:00 Pulse Rate 95 09/17/21 17:00 Respiratory Rate 18 09/17/21 17:00 Blood Pressure 128/78 09/17/21 17:00 Pulse Oximetry 99 09/17/21 17:00 MDM - Male Medical Decision Making Will obtain gonorrhea/chlamydia swabs. Patient was given PO azithromycin (I worried about adherence/being able to fill RX doxycycline) and IM rocephin. Encouraged all sexual partners get tested/treated. Discussed cleaning any sexual toys. Needs to have test of cure performed before engaging in sexual activity. Patient verbalized understanding. Discharge Plan Discharge Patient Disposition: Home Clinical Impression: Penile discharge Condition: Stable Prescriptions: No Action fluoxetine 20 mg Capsule 20 mg PO DAILY 30 Days Qty: 30 1RF naltrexone 50 mg tablet 50 mg PO DAILY Qty: 30 1RF albuterol sulfate 90 mcg/actuation HFA aerosol inhaler 2 inh INHALATION Q4H PRN (Reason: shortness of breath or wheezing) Qty: 18 0RF Discharge Orders: Discharge ED (Routine); Ordered 09/17/21 Ordered By: Cate Jiang Patient Instructions: Safe Sex Practices (ED), Sexually Transmitted Diseases in Adolescents (ED) Activity Restrictions/Additional Instructions: As we discussed all sexual partners need to get tested and treated as well. You need to wash and disinfect all sexual toys. You should be contacted in a few days if your gonorrhea/chlamydia test come back positive. You will need to have a test of cure performed by the health department or primary care prior to resuming sexual activity. Coding Level of Care Code ED Network And Threat Support Specialist for Estela Fwd Exam Detailed
[2021-09-17] MEDS: azithromycin 250 mg Tablet 1000 MG PO (18:52)
[2021-09-17 19:21] VITALS: BP 123/81; PULSE 95; RESP 20; O2SAT 99
== END 2021-09-17 19:22 | disposition home or self-care (01) ==
PROVIDERS: Emergency Provider Physician Assistant
DX: R36.9 Urethral discharge, unspecified (principal); F17.210 Nicotine dependence, cigarettes, uncomplicated
CPT/HCPCS: 87491; 87591; 96372; 99283; J0696; Q0144

== ENCOUNTER 2022-08-16 21:41 | Emergency (ER) | payer BC, SELFPAY ==
[2022-08-16 21:59] VITALS: BP 161/99; PULSE 93; RESP 18; TEMP 36.4; O2SAT 99; BMI 24.4
[2022-08-16] MEDS: ketorolac 60 mg/2 mL INJ IM (23:30)
--- NOTE | 2022-08-17 00:06 | ED_ITS ---
Documented by User: CASIE Perez 08/17/22 00:18 HPI - Extremity Problem General: Chief complaint: Extremity Injury, Upper Stated complaint: wrist pain Time Seen by Provider: 08/16/22 22:55 History of Present Illness: Patient is a 31-year-old male that presents to the emergency department with complaints of bilateral hand pain numbness. Onset of symptoms unknown. 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 Patient denies any known injury or trauma to the extremities Patient has wounds in multiple stages of healing to hands, upper extremities, face. Patient has a history of methamphetamine and IV drug abuse but denies that currently Associated symptoms: Deny chest pain, fever(s) or rash Review of Systems General: Reports: 10 or more systems reviewed and unremarkable except in HPI and below Const: Denies: fever(s), chills, change in appetite, change in weight, fatigue or malaise Eyes: Denies: change in vision, eye discomfort, eye discharge or eye redness ENMT: Denies: throat pain, enlarged tonsils, odynophagia, hoarseness, ear or mastoid pain, ear discharge, change in hearing, tinnitus, nasal discharge, nasal congestion, post nasal drip or sinus pain Card: Denies: chest pain, palpitations, irregular heart rhythm, edema, dyspnea on exertion, orthopnea or leg pain with exertion Resp: Denies: dyspnea, productive cough, non-productive cough, wheezing, stridor or chest congestion GI: Denies: abdominal pain, nausea, vomiting, dysphagia, diarrhea, constipation, bloating, GI cramping or hematochezia : Denies: flank pain, dysuria, urinary frequency, urinary urgency, urinary hesitancy, oliguria or hematuria Musc: Denies: neck pain, back pain, extremity pain, joint pain, joint swelling, joint redness, joint warmth or muscle weakness Skin/Breast: Denies: rash, pruritus, erythema, photosensitivity or new lesions Neuro: Denies: headache(s), numbness in extremities, weakness in extremities, sensory changes, lack of coordination, difficulty walking, frequent falls, dizziness, confusion, Slurred speech present, difficulty communicating thoughts, seizure-like activity or involuntary movements Endo: Denies: polyuria, polydipsia or tired all the time Saul/Lymph: Denies: easy bruising or easy bleeding PFSH ED PFSH: Social History Smoking and tobacco status: current every day smoker Current gender identity: Male Physical Exam Const: COMMON NORMALS: no acute distress, average body habitus, patient oriented x3, no limitations, healthy appearing, alert and well nourished GENERAL APPEARANCE: cooperative, comfortable and well developed; not in distress and not anxious ORIENTATION/CONSCIOUSNESS: Yes awake, Yes oriented to person, Yes oriented to place and Yes oriented to time HENMT: COMMON NORMALS: normocephalic, atraumatic and hearing grossly normal bilaterally HEAD & SCALP: normal to inspection, normocephalic and atraumatic FACE & SINUS: face symmetric MOUTH: Normal oral and palatal mucosa present, lip normal and tongue normal Eye: COMMON NORMALS: Equal, round and reactive pupils present and EOMs intact bilaterally PUPIL: Yes Equal, round and reactive pupils present Neck/C-Spine: COMMON NORMALS: full ROM and supple GENERAL: Yes normal visual inspection CERVICAL SPINE: Yes cervical ROM normal Lymph: LYMPHATIC: no lymphadenopathy noted Chest: COMMONS NORMALS: normal inspection of the chest Breast/axilla inspection: Yes no chest deformity, asymmetry, normal contours, no nodules, masses, tenderness Resp: COMMON NORMALS: normal respiratory effort, No retractions and No use of accessory muscles EFFORT & INSPECTION: Yes able to speak in complete sentences, Yes symmetric chest movement and No abnormal respiratory pattern Cardio: COMMON NORMALS: regular rate, regular rhythm and Peripheral pulses 2+ throughout RATE: regular rate RHYTHM: regular rhythm PERIPHERAL PULSES: Peripheral pulses 2+ throughout GI: COMMON NORMALS: Normal to inspection, nondistended, normoactive bowel sounds present, Soft to palpation and non-tender INSPECTION: Yes normal to inspection PALPATION: Yes Soft to palpation Extremity: COMMON NORMALS: normal to inspection, full ROM and capillary refill normal GENERAL: Yes normal exam except as noted Neuro: COMMON NORMALS: patient oriented x3 SENSORIUM/ORIENTATION: Yes alert, Yes oriented to person, Yes oriented to place and Yes oriented to time Psych: COMMON NORMALS: mental status grossly normal, Normal thought process present, cooperative, normal affect, speech normal and activity/motor behavior normal SPEECH: Yes normal speech THOUGHT PROCESS: Normal thought process present Skin: COMMON NORMALS: no rashes or lesions noted, no wounds, turgor normal, no jaundice, no petechiae and no mottling GENERAL SKIN EXAM: no rashes or lesions noted and turgor normal Course Vital Signs: Vital signs: Vital Signs Temperature 97.6 F 08/16/22 21:59 Pulse Rate 93 08/16/22 21:59 Respiratory Rate 18 08/16/22 21:59 Blood Pressure 161/99 08/16/22 21:59 Pulse Oximetry 99 08/16/22 21:59 MDM - Extremity (Nontraumatic) Medical Decision Making Patient is a 31-year-old man that presents to the emergency department with complaints of bilateral hand pain or numbness. Patient reports numbness and tingling along the median nerve distribution of the left upper extremity. Patient reports pain in right hand Differential diagnosis includes traumatic injury to include fracture, fracture dislocation, soft tissue injury including cellulitis, carpal tunnel, Here in the emergency department patient had a positive Tinel's and Phalen with the left upper extremity. I have ordered him a cock up wrist splint Patient does not have any evidence of nerve dysfunction. He is able to give a thumbs up make an okay sign, cross fingers, abduct fingers and make a fist Sensations grossly intact throughout upper extremities I treated his pain with Toradol. Patient will discharge home with follow-up with PCP. All questions answered in detail Discharge Plan Discharge Patient Disposition: Home Clinical Impression: Sprain and strain of wrist, Acute carpal tunnel syndrome Condition: Stable Prescriptions: New ketorolac 10 mg tablet 10 mg PO TID 5 Days Qty: 15 0RF No Action fluoxetine 20 mg Capsule 20 mg PO DAILY 30 Days Qty: 30 1RF naltrexone 50 mg tablet 50 mg PO DAILY Qty: 30 1RF albuterol sulfate 90 mcg/actuation HFA aerosol inhaler 2 inh INHALATION Q4H PRN (Reason: shortness of breath or wheezing) Qty: 18 0RF Discharge Orders: Discharge ED (Routine); Ordered 08/17/22 Ordered By: Zoey Ladd Discharge Diet: Advance as tolerated Discharge Activity: Resume usual activity Patient Instructions: Carpal Tunnel Syndrome, Wrist Injury (ED), Opioid Safety, Pain Management Activity Restrictions/Additional Instructions: Please follow-up with your primary care provider for further evaluation of todays complaints. Return to the emergency department for new concerning or worsening symptom Coding Level of Care Code ED Rotary Bar Operator for Chg Fwd Exam Comprehensive Documented by User: Sarkis Oden DO 08/17/22 08:27 HPI - Extremity Problem General: Chief complaint: Extremity Injury, Upper Stated complaint: wrist pain Time Seen by Provider: 08/16/22 22:55 PFSH ED PFSH: Social History Smoking and tobacco status: current every day smoker Current gender identity: Male Course Vital Signs: Vital signs: Vital Signs Temperature 97.6 F 08/16/22 21:59 Pulse Rate 93 08/16/22 21:59 Respiratory Rate 18 08/16/22 21:59 Blood Pressure 161/99 08/16/22 21:59 Pulse Oximetry 99 08/16/22 21:59 MDM - Extremity (Nontraumatic) Medical Decision Making Patient is a 31-year-old man that presents to the emergency department with complaints of bilateral hand pain or numbness. Patient reports numbness and tingling along the median nerve distribution of the left upper extremity. Patient reports pain in right hand Differential diagnosis includes traumatic injury to include fracture, fracture dislocation, soft tissue injury including cellulitis, carpal tunnel, Here in the emergency department patient had a positive Tinel's and Phalen with the left upper extremity. I have ordered him a cock up wrist splint Patient does not have any evidence of nerve dysfunction. He is able to give a thumbs up make an okay sign, cross fingers, abduct fingers and make a fist Sensations grossly intact throughout upper extremities I treated his pain with Toradol. Patient will discharge home with follow-up with PCP. All questions answered in detail Chart reviewed and patient discussed with midlevel. Agree with assessment and plan. Discharge Plan Discharge Patient Disposition: Home Clinical Impression: Sprain and strain of wrist, Acute carpal tunnel syndrome Condition: Stable Prescriptions: New ketorolac 10 mg tablet 10 mg PO TID 5 Days Qty: 15 0RF No Action fluoxetine 20 mg Capsule 20 mg PO DAILY 30 Days Qty: 30 1RF naltrexone 50 mg tablet 50 mg PO DAILY Qty: 30 1RF albuterol sulfate 90 mcg/actuation HFA aerosol inhaler 2 inh INHALATION Q4H PRN (Reason: shortness of breath or wheezing) Qty: 18 0RF Discharge Orders: Discharge ED (Routine); Ordered 08/17/22 Ordered By: Zoey Ladd Discharge Diet: Advance as tolerated Discharge Activity: Resume usual activity Patient Instructions: Carpal Tunnel Syndrome, Wrist Injury (ED), Opioid Safety, Pain Management Activity Restrictions/Additional Instructions: Please follow-up with your primary care provider for further evaluation of todays complaints. Return to the emergency department for new concerning or worsening symptom Coding Level of Care Code ED Rotary Bar Operator for Estela Blood Exam Comprehensive
== END 2022-08-17 00:57 | disposition home or self-care (01) ==
PROVIDERS: Emergency Provider Nurse Practitioner
DX: S63.509A Unspecified sprain of unspecified wrist, initial encounter (principal); S66.919A Strain of unspecified muscle, fascia and tendon at wrist and hand level, unspecified hand, initial encounter; G56.00 Carpal tunnel syndrome, unspecified upper limb; F17.210 Nicotine dependence, cigarettes, uncomplicated; X58.XXXA Exposure to other specified factors, initial encounter
CPT/HCPCS: 96372; 99284; J1885

== ENCOUNTER 2023-06-04 19:17 | Emergency (ER) | payer SELFPAY ==
[2023-06-04 19:20] VITALS: BP 156/95; PULSE 68; RESP 16; TEMP 36.6; O2SAT 99; BMI 24.4
[2023-06-04 19:51] VITALS: BP 140/82; PULSE 67; RESP 18; O2SAT 97
[2023-06-04] MEDS: naproxen 500 mg Tablet PO (20:41)
[2023-06-04] MEDS: dexamethasone 10 mg/mL INJ IM (20:42)
--- NOTE | 2023-06-04 22:01 | W.ED.EXTPRO ---
HPI - Extremity Problem General: Chief complaint: Extremity Injury, Upper Stated complaint: bilateral hand pain Time Seen by Provider: 06/04/23 19:40 History of Present Illness: 32-year-old male complains of bilateral wrist and hand pain for a few months. 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 He did repetitive movements and strained his hands and wrist frequently. He started getting pain shooting from the wrist down into his fingers. He got fired from that job and states that his wrists and hands got better. 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 He does this recurrently. This has flared up his pain again. He says the pain is even worse if he sleeps wrong on his wrist. He has tried using splints but his wrist seems swollen and the splints make it hurt even worse. He says when he sleeps at night he puts his hands together and puts them up in an area where he will not flex or extend them. Denies redness, excessive warmth, fever, chills, wounds. Associated symptoms: Deny fever(s) Review of Systems General: Reports: 10 or more systems reviewed and unremarkable except in HPI and below Const: Denies: fever(s), chills or body aches Musc: Reports: extremity pain, extremity swelling, joint stiffness and limited range of motion; Denies: joint swelling, joint redness, joint warmth, muscle weakness or deformity PFSH ED PFSH: Social History Smoking and tobacco/nicotine status: current every day tobacco/nicotine user Current gender identity: Male Physical Exam Const: COMMON NORMALS: no limitations, alert and well nourished EXAM LIMITATIONS: no altered mental status Neck/C-Spine: GENERAL: Yes normal visual inspection and Yes trachea midline Extremity: NARRATIVE EXTREMITY EXAM: Bilateral upper extremities examined. The shoulders upper arms and elbows are all unremarkable. The forearms are unremarkable. The patient has tenderness to squeezing over the carpal tunnel bilaterally. Tinel's sign is positive. Phalen's flap is positive. Patient has the ability to abduct and abduct his fingers. He can flex and extend his wrist but it causes him pretty significant pain. The carpal passage seems edematous bilaterally but right greater than left. Cap refill in the fingers is normal. Neuro: COMMON NORMALS: moves all extremities, no focal motor deficits and no sensory deficits noted SENSORIUM/ORIENTATION: Yes alert SPEECH: speech normal Skin: COMMON NORMALS: no rashes or lesions noted, turgor normal and no jaundice GENERAL SKIN EXAM: no rashes or lesions noted and turgor normal Course Vital Signs: Vital signs: Vital Signs Temperature 97.9 F 06/04/23 19:20 Pulse Rate 67 06/04/23 19:51 Respiratory Rate 18 06/04/23 19:51 Blood Pressure 140/82 06/04/23 19:51 Pulse Oximetry 97 06/04/23 19:51 Oxygen Delivery Me thod Room Air 06/04/23 19:51 MDM - Extremity (Nontraumatic) Medical Decision Making I suspect that the patient does have carpal tunnel syndrome bilaterally, right greater than left. He does repetitive movements and the more he does the worse it gets. I have advised trial of NSAIDs, rest, scheduled icing, using Tao wraps (as he says the splints are too tight), and follow-up to orthopedic surgery. Unfortunately, his entire role at his job revolves around moving the slabs of wood. He may ultimately have to find a new job since there is no way for him to do light duty . Decadron shot given in the ED to help with inflammation and pain. No signs of septic joint or other emergent etiology. No radiology studies performed this visit Discharge Plan Discharge Patient Disposition: Home Clinical Impression: Carpal tunnel syndrome on both sides Condition: Stable Prescriptions: New naproxen 250 mg tablet 250 mg PO BID 10 Days Qty: 20 0RF No Action fluoxetine 20 mg Capsule 20 mg PO DAILY 30 Days Qty: 30 1RF naltrexone 50 mg tablet 50 mg PO DAILY Qty: 30 1RF albuterol sulfate 90 mcg/actuation HFA aerosol inhaler 2 inh INHALATION Q4H PRN (Reason: shortness of breath or wheezing) Qty: 18 0RF Discharge Orders: Discharge ED (Routine); Ordered 06/04/23 Ordered By: Leo Willson Referrals: Nuzhat Mejia MD [Physician] - 7-10 days (Suspected carpal tunnel) Discharge Activity: Limit activity as instructed Patient Instructions: Carpal Tunnel Syndrome, Opioid Safety, Pain Management Activity Restrictions/Additional Instructions: 1. Avoid repetitive movements and lifting with the hands/wrists. 2. Ice the wrists for 20 minutes 3x per day; elevate. 3. Wear wrist splints or TAO wraps at night and as much as possible during the day as well. 4. Make a follow-up with Dr Nuzhat Mejia for further evaluation and treatment. 5. Take medication as prescribed for 10 days. Coding Level of Care Code ED Fisher Purse Seine for Etsela Blood
--- NOTE | 2023-06-05 07:46 | DCPLANNER ---
Referral was sent to ortho clinic on 06/05 at 07:46 am. Clinic to contact patient.
== END 2023-06-04 20:40 | disposition home or self-care (01) ==
PROVIDERS: Emergency Provider Emergency Medicine
DX: G56.03 Carpal tunnel syndrome, bilateral upper limbs (principal); Z72.0 Tobacco use
CPT/HCPCS: 96372; 99284; J1100

== ENCOUNTER → 2023-07-21 13:13 | Outpatient (BNVA) | payer SELFPAY | PROVIDERS: Visit Provider Specialist | DX: G56.03 Carpal tunnel syndrome, bilateral upper limbs (principal); M25.331 Other instability, right wrist; M19.131 Post-traumatic osteoarthritis, right wrist | CPT/HCPCS: 73110 ==

== ENCOUNTER 2023-10-29 21:37 | Emergency (ER) | payer BC, SELFPAY ==
[2023-10-29 21:56] VITALS: BP 120/83; PULSE 72; RESP 16; TEMP 36.4; O2SAT 99; BMI 25.1
--- NOTE | 2023-10-29 22:02 | ED_ITS ---
HPI - Skin/Abscess/Foreign Bdy General: Chief complaint: Skin/Abscess/Foreign Body Stated complaint: dental pain and swelling Time Seen by Provider: 10/29/23 21:56 History of Present Illness: 32-year-old male patient comes in today with complaints of dental pain and swelling. Patient reports the pain to the right upper cuspid. Patient has significant decay throughout his dentition. Review of Systems General: Reports: 10 or more systems reviewed and unremarkable except in HPI and below ENMT: Reports: dental pain PFSH ED PFSH: Social History Smoking and tobacco/nicotine status: current every day tobacco/nicotine user Current gender identity: Male Physical Exam Const: COMMON NORMALS: alert HENMT: COMMON NORMALS: normocephalic HEAD & SCALP: normocephalic TEETH & GINGIVA: Yes gingiva abnormal (Abscess right upper cuspid region) and Yes poor dentition Neck/C-Spine: COMMON NORMALS: full ROM Resp: COMMON NORMALS: normal respiratory effort and clear to auscultation bilaterally AUSCULTATION: clear to auscultation bilaterally Cardio: COMMON NORMALS: regular rate and regular rhythm RATE: regular rate RHYTHM: regular rhythm GI: COMMON NORMALS: non-tender Extremity: COMMON NORMALS: normal to inspection Neuro: SENSORIUM/ORIENTATION: Yes alert Skin: COMMON NORMALS: turgor normal GENERAL SKIN EXAM: turgor normal Course Vital Signs: Vital signs: Vital Signs Temperature 97.6 F 10/29/23 21:56 Pulse Rate 72 10/29/23 21:56 Respiratory Rate 16 10/29/23 21:56 Blood Pressure 120/83 10/29/23 21:56 Pulse Oximetry 99 10/29/23 21:56 Oxygen Delivery Me thod Room Air 10/29/23 21:56 MDM - Skin/Abscess/Foreign Bdy Medicial Decision Making 32-year-old male patient comes in today with complaints of right upper facial swelling and dental pain. On exam patient has some swelling and significant decay of the right upper cuspid. Posterior pharynx is pink and moist. Patient is managing secretions well. Differential diagnosis includes but not limited to dental caries, dental abscess, dental pain. Believe patient probably has a dental abscess. Patient be started on Augmentin 875 mg 1 tablet twice a day for 7 days. Recommend follow-up with dentist. Patient reported understanding. No radiology studies performed this visit Discharge Plan Discharge Patient Disposition: Home Clinical Impression: Dental abscess Condition: Stable Prescriptions: New amoxicillin-pot clavulanate 875-125 mg tablet 1 tab PO BID Qty: 14 0RF No Action fluoxetine 20 mg Capsule 20 mg PO DAILY 30 Days Qty: 30 1RF naltrexone 50 mg tablet 50 mg PO DAILY Qty: 30 1RF albuterol sulfate 90 mcg/actuation HFA aerosol inhaler 2 inh INHALATION Q4H PRN (Reason: shortness of breath or wheezing) Qty: 18 0RF Discharge Orders: Discharge ED (Routine); Ordered 10/29/23 Ordered By: Leland Mon Discharge Diet: Usual diet Discharge Activity: Increase activity as tolerated Patient Instructions: Dental Abscess (ED) Activity Restrictions/Additional Instructions: Follow-up with dentist for definitive oral care. Return to ER for new concerns. Use ice packs for further pain relief. Drink plenty of water with medication. Use acetaminophen ibuprofen for further pain relief. Coding Level of Care Code ED Egg Separator for Estela Blood
[2023-10-29] MEDS: amoxicillin-clav 875-125 mg Tablet 1 TAB PO (22:14)
== END 2023-10-29 22:24 | disposition home or self-care (01) ==
PROVIDERS: Emergency Provider Nurse Practitioner Family
DX: K04.7 Periapical abscess without sinus (principal); Z72.0 Tobacco use
CPT/HCPCS: 99283